=== PATIENT | female | born 1965 | race Caucasian/White ===

== ENCOUNTER 2021-08-16 21:02 | Inpatient (IN) ==
[2021-08-16] MEDS ORDERED: SODIUM CHLORIDE 0.9% 1,000 ML IV STA (21:15)
[2021-08-16] MEDS ORDERED: ONDANSETRON 4 MG/2 ML VIAL IV STA (21:44)
[2021-08-17] MEDS ORDERED: MORPHINE 2 MG/1 ML SYRINGE IV PRN (01:13)
[2021-08-17] MEDS ORDERED: ONDANSETRON 4 MG/2 ML VIAL IV PRN (01:13)
[2021-08-17] MEDS ORDERED: GLUCAGON 1 MG VIAL IM PRN (01:13)
[2021-08-17] MEDS ORDERED: DEXTROSE 50% 25 GM/50 ML SYRINGE IV PRN (01:13)
[2021-08-17 01:58] LABS: Albumin 2.9 G/DL (3.4-5.0); Bilirubin,Total 3.7 MG/DL (0.20-1.00); Calcium 8.2 MG/DL (8.5-10.1); Osmolality,Calculated 278.4 MOS/KG (273-304); Potassium 3.2 MMOL/L (3.5-5.1); Total Protein 5.8 G/DL (6.4-8.2)
[2021-08-17] MEDS: LEVOFLOXACIN INJ 500 MG/100 ML PREMIX IV SCH (02:05)
[2021-08-17 02:57] LABS: Hepatitis B Core IgM Quant 0.16 Index; Hepatitis B Surface Ab Result Non-Reactive (NonReactive); Hepatitis B Surface Ag Quant < 0.10 Index; Hepatitis B Surface Ag Result Non-Reactive (NonReactive); Hepatitis C Virus Ab Quant 0.04 Index; Hepatitis C Virus Ab Result Non-Reactive (NonReactive)
[2021-08-17] MEDS: SODIUM CHLORIDE 0.9% 1,000 ML IV SCH ×3 (03:32→19:40)
[2021-08-17 05:04] LABS: Basophils % 0.3 % (0.0-0.8); Eosinophils # 0.1 10*3/uL (0.0-0.87); Eosinophils % 2.1 % (0.00-10.9); Hemoglobin 11.2 GM/DL (12.0-16.0); Immature Granulocytes % 0.3 %; Immature Granulocytes Absolute 0.01 #; Lymphocytes # 0.2 10*3/uL (1.4-4.0); Lymphocytes % 5.2 % (21.3-54.2); Mean Corpuscular HGB Conc 32.9 GM/DL (32-36); Mean Corpuscular Volume 90.2 FL (87-102); Mean Platelet Volume 10.3 FL (9.6-12.0); Monocytes % 3.1 % (1.7-12.7); Platelet Count 93 T/CUMM (130-400); Red Blood Count 3.77 MC/CUMM (3.8-5.5); Red Cell Distribution Width 12.1 % (9.3-17.3); White Blood Count 3.8 T/CUMM (4-12)
[2021-08-17 05:26] LABS: Albumin 2.9 G/DL (3.4-5.0); Bilirubin,Total 3.9 MG/DL (0.20-1.00); Calcium 8.3 MG/DL (8.5-10.1); Osmolality,Calculated 275.5 MOS/KG (273-304); Potassium 3.3 MMOL/L (3.5-5.1); Total Protein 5.7 G/DL (6.4-8.2)
[2021-08-17] MEDS: PANTOPRAZOLE 40 MG VIAL IV SCH (09:06)
[2021-08-17] MEDS: metroNIDAZOLE INJ 500 MG/100 ML PREMIX IV SCH ×3 (11:38→21:25)
[2021-08-17] MEDS ORDERED: KETOROLAC 30 MG/1 ML VIAL IV PRN (14:53)
[2021-08-17] MEDS ORDERED: diphenhydrAMINE 50 MG/1 ML VIAL IV ONE (20:26)
[2021-08-18] MEDS: LEVOFLOXACIN INJ 500 MG/100 ML PREMIX IV SCH (01:53)
[2021-08-18] MEDS: SODIUM CHLORIDE 0.9% 1,000 ML IV SCH ×2 (03:52→13:21)
[2021-08-18] MEDS: metroNIDAZOLE INJ 500 MG/100 ML PREMIX IV SCH ×2 (04:08→13:32)
[2021-08-18] MEDS ORDERED: ACETAMINOPHEN 650 MG SUPP RECTAL ONE (05:10)
[2021-08-18 06:30] LABS: Basophils % 0.2 % (0.0-0.8); Eosinophils # 0.1 10*3/uL (0.0-0.87); Eosinophils % 1.4 % (0.00-10.9); Hematocrit 32.1 VOL% (35.7-47.0); Hemoglobin 10.3 GM/DL (12.0-16.0); Immature Granulocytes % 0.3 %; Immature Granulocytes Absolute 0.02 #; Lymphocytes # 0.5 10*3/uL (1.4-4.0); Lymphocytes % 7.8 % (21.3-54.2); Mean Corpuscular HGB Conc 32.1 GM/DL (32-36); Mean Corpuscular Volume 91.2 FL (87-102); Mean Platelet Volume 10.8 FL (9.6-12.0); Monocytes % 1.4 % (1.7-12.7); Neutrophils % 88.9 % (38.7-73.9); Platelet Count 138 T/CUMM (130-400); Red Blood Count 3.52 MC/CUMM (3.8-5.5); Red Cell Distribution Width 12.6 % (9.3-17.3); White Blood Count 5.8 T/CUMM (4-12)
[2021-08-18 06:55] LABS: Band Neutrophils 6 % (0-10); Lymphocytes 6 % (20-55); Platelet Estimate Normal; Segmented Neutrophils 86 % (50-85); Total Cells Counted 100
[2021-08-18 07:17] LABS: % Iron Saturation 10.5 % (18-50)
[2021-08-18 07:25] LABS: Albumin 2.4 G/DL (3.4-5.0); Bilirubin,Total 1.8 MG/DL (0.20-1.00); Calcium 8.1 MG/DL (8.5-10.1); Osmolality,Calculated 282.1 MOS/KG (273-304); Potassium 3.4 MMOL/L (3.5-5.1); Total Protein 5.3 G/DL (6.4-8.2)
[2021-08-18] MEDS: ENOXAPARIN 40 MG/0.4 ML SYRINGE SUBCUT SCH (10:15)
[2021-08-18] MEDS: PANTOPRAZOLE 40 MG VIAL IV SCH (13:21)
[2021-08-18] MEDS ORDERED: FUROSEMIDE 40 MG/4 ML VIAL IV ONE (13:45)
[2021-08-18 14:11] LABS: Mitochondrial Antibody (M2) <0.1 U
[2021-08-18] MEDS: metroNIDAZOLE 500 MG TABLET PO SCH (17:30)
[2021-08-19 03:37] LABS: Antinuclear Ab, S 1.4 U
[2021-08-19] MEDS ORDERED: LEVOFLOXACIN INJ 750 MG/150 ML PREMIX IV SCH (06:00)
[2021-08-19 06:21] LABS: Basophils % 0.2 % (0.0-0.8); Eosinophils # 0.2 10*3/uL (0.0-0.87); Eosinophils % 2.9 % (0.00-10.9); Hematocrit 33.4 VOL% (35.7-47.0); Hemoglobin 10.9 GM/DL (12.0-16.0); Immature Granulocytes % 0.5 %; Immature Granulocytes Absolute 0.03 #; Lymphocytes # 0.9 10*3/uL (1.4-4.0); Mean Corpuscular HGB Conc 32.6 GM/DL (32-36); Mean Corpuscular Volume 88.8 FL (87-102); Mean Platelet Volume 10.5 FL (9.6-12.0); Monocytes % 2.2 % (1.7-12.7); Neutrophils % 78.2 % (38.7-73.9); Platelet Count 146 T/CUMM (130-400); Red Blood Count 3.76 MC/CUMM (3.8-5.5); Red Cell Distribution Width 12.5 % (9.3-17.3); White Blood Count 5.9 T/CUMM (4-12)
[2021-08-19 06:42] LABS: Albumin 2.4 G/DL (3.4-5.0); Bilirubin,Total 1.4 MG/DL (0.20-1.00); Calcium 8.2 MG/DL (8.5-10.1); Potassium 2.9 MMOL/L (3.5-5.1); Total Protein 5.4 G/DL (6.4-8.2)
[2021-08-19] MEDS ORDERED: POTASSIUM CHLORIDE RIDER 10 MEQ/100 ML PREMIX IV PRN (08:19)
[2021-08-19] MEDS ORDERED: POTASSIUM CHLORIDE 20 MEQ TABLET PO PRN (08:19)
[2021-08-19 08:52] VITALS: BP 105/69
[2021-08-19] MEDS: metroNIDAZOLE 500 MG TABLET PO SCH (08:57)
[2021-08-19] MEDS: ENOXAPARIN 40 MG/0.4 ML SYRINGE SUBCUT SCH (08:58)
[2021-08-19] MEDS: PANTOPRAZOLE 40 MG VIAL IV SCH (08:58)
[2021-08-19] MEDS ORDERED: POTASSIUM CHLORIDE 20 MEQ TABLET PO ONE ×2 (09:52→11:30)
[2021-08-20 10:47] LABS: Anti-Nuclear Antibody Pattern Homogeneous
[2021-08-24 12:50] LABS: Alpha-1-Antitrypsin, Serum 169 mg/dL (100 - 190)
== END 2021-08-19 12:10 | disposition home or self-care (01) | DRG 392 ==
LOC: N.ED 21:02 → SUATTDRO 08-17 01:13 → N.EDINP 08-17 01:13 → N.3E 08-17 02:22
PROVIDERS: ADMIT Internal Medicine; ATTEND Internal Medicine